=== PATIENT | female | born 2000 | race Two or more races ===

== ENCOUNTER 2025-01-01 08:23 | Emergency (ER) | payer OTHER, SELFPAY ==
[2025-01-01 08:29] VITALS: BP 144/94; PULSE 78; TEMP 36.7; O2SAT 99; BMI 21.6
--- NOTE | 2025-01-01 08:50 | ED_ITS ---
HPI HPI - General Adult General Chief complaint: Abdominal Pain Stated complaint: LOWER L SIDED ABDOMINAL & RECTAL PAIN, MISCARRIAGE Time Seen by Provider: 01/01/25 08:43 Source: patient Mode of arrival: walk-in Limitations: no limitations History of Present Illness HPI narrative: 24-year-old female presents to the emergency department for low abdominal pain. She states she started having a miscarriage on December 07 and was having some bleeding. At 1 point she was seen at an urgent care center in [place] and she had an ultrasound and she was told she still had some tissue. She was given Cytotec. She had some severe lower abdominal pain today and came in to get checked. No fever or injury. She is 4 para 1. Related Data Home Medications ?Medication ?Instructions ?Recorded ?Confirmed No Known Home Medications 01/01/2512/15 Allergies Allergy/AdvReac Type Severity Reaction Status Date / Time No Known Drug Allergies Allergy Verified 01/01/25 08:29 Opioid HPI Opioid Management Most Recent Opioid Data: Last Pain Scale 3 Today, 08:35 Review of Systems ROS Narrative A ten point review of systems is negative except as noted above. PFSH PFSH Social History Little interest or pleasure in doing things: not at all Feeling down, depressed, or hopeless: not at all Exam Narrative Exam Narrative: Nurses note and vital signs reviewed and patient is not hypoxic. General: The patient appears well and in no apparent distress. Patient is resting comfortably on cart. Skin: Warm, dry, no pallor noted. There is no rash noted. Head: Normocephalic, atraumatic Eye: Normal conjunctiva, no drainage Ears, Nose, Mouth, and Throat: oral mucosa is moist. Nares patent. Cardiovascular: Regular Rate and Rhythm Respiratory: Patient is in no distress, no accessory muscle use, lungs are clear to auscultation, no wheezing, rales or rhonchi Back: non-tender GI: Mild tenderness across the lower abdomen Musculoskeletal: The patient has no evidence of calf tenderness, no pitting edema, symmetrical pulses noted bilaterally Neurological: A&O, normal speech Psychiatric: Cooperative Constitutional Vital Signs, click to edit/add: Last Vital Signs Temp 98.1 F 01/01/25 08:29 Pulse 78 01/01/25 08:29 Resp 18 01/01/25 08:29 BP 144/94 H 01/01/25 08:29 Pulse Ox 99 01/01/25 09:27 O2 Del Method Room Air 01/01/25 09:27 Course Vital Signs Vital signs: Vital Signs Temperature 98.1 F 01/01/25 08:29 Pulse Rate 78 01/01/25 08:29 Respiratory Rate 18 01/01/25 08:29 Blood Pressure 144/94 H 01/01/25 08:29 Pulse Oximetry 99 01/01/25 08:29 Oxygen Delivery Method Room Air 01/01/25 08:29 Temperature 98.1 F 01/01/25 08:29 Pulse Rate 78 01/01/25 08:29 Respiratory Rate 18 01/01/25 08:29 Blood Pressure 144/94 H 01/01/25 08:29 Pulse Oximetry 99 01/01/25 09:27 Oxygen Delivery Method Room Air 01/01/25 09:27 Medical Decision Making MDM Narrative Medical decision making narrative: hCG is only 13. Ultrasound showed questionable retained products. I discussed the case with Dr. Hubbard. We agree that it is unlikely that she has retained products with an hCG of only 13. He will see her in the office on Saturday, 3 days from now. She was given a prescription for repeat hCG titer to be done b efore her appointment. Treatment diagnosis and follow-up were discussed with the patient Differential Diagnosis Differential Diagnosis: Miscarriage, incomplete miscarriage Lab Data Lab results reviewed: Yes I reviewed the patient's lab results Labs: Lab Results 01/01/25 Range/Units 09:00 WBC 4.5 (4.0-11.0) 10^3/uL RBC 3.78 L (4.20-5.40) 10^6/uL Hgb 9.4 L (12.0-16.0) g/dL Hct 28.5 L (36.0-48.0) % MCV 75.4 L (81.0-99.0) fL MCH 24.9 L (26.7-34.0) pg MCHC 33.0 (29.9-35.2) g/dL RDW 13.5 (11.0-15.0) % Plt Count 251 (150-450) 10^3/uL MPV 11.8 (9.5-13.5) fL Neut % (Auto) 66.0 (43.0-75.0) % Lymph % (Auto) 27.2 (20.5-60.0) % [place] % (Auto) 5.5 (1.7-12.0) % Eos % (Auto) 0.9 (0.9-7.0) % Baso % (Auto) 0.2 (0.2-2.0) % Neut # (Auto) 3.0 (1.4-6.5) 10^3/uL Lymph # (Auto) 1.2 (1.2-3.8) 10^3/uL [place] # (Auto) 0.3 (0.3-0.8) 10^3/uL Eos # (Auto) 0.0 (0.0-0.7) 10^3/uL Baso # (Auto) 0.0 (0.0-0.1) 10^3/uL Abs Immat Gran (auto) 0.01 (0.00-0.03) 10^3/uL Imm/Tot Granulo (auto) 0.2 (0.0-0.5) % Sodium 140 (136-145) mmol/L Potassium 3.8 (3.5-5.1) mmol/L Chloride 104 (98-107) mmol/L Carbon Dioxide 27.1 (21.0-32.0) mmol/L Anion Gap 12.7 BUN 12.0 (7.0-18.0) mg/dL Creatinine 0.76 (0.55-1.02) mg/dL Est GFR ( Amer) >60 (>=60 mL/min/1.73m^2) Est GFR (Non-Af Amer) >60 (>=60 mL/min/1.73m^2) BUN/Creatinine Ratio 15.8 Glucose 93 (74-106) mg/dL Calcium 8.9 (8.5-10.1) mg/dL HCG, Quant 13 mIU/mL Blood Type O Positive Imaging Data Pelvic ultrasound: Radiologist's impression: ITS Impressions Transvaginal US 01/01/25 09:11 IMPRESSION: COMPLEX APPEARING ENDOMETRIUM. RETAINED PRODUCTS OF CONCEPTION ARE NOT EXCLUDED. NO ADNEXAL CYSTS. Impression dictated by: Michelle Ashraf M.D. 01/01/2025 11:21 AM Dictation Location: [place] [id number] Electronically authenticated by: [id number] Y Date: 01/01/2025 11:21 Discharge Plan Discharge Chief Complaint: Abdominal Pain Clinical Impression: Miscarriage Patient Disposition: Home, Self-Care Time of Disposition Decision: 12:32 Condition: Good Mode of Transportation: Private Vehicle Prescriptions / Home Meds: No Action No Known Home Medications Print Language: Iranian Instructions: Miscarriage (ED) Additional Instructions: See Dr. Hubbard on Saturday. Have your blood drawn before your appointment. Referrals: Lionel Hubbard DO [Physician, [employer]S CLERK] - 01/04/25 [facility] [Primary Care Provider, Unknown] - 1 week
[2025-01-01 09:09] LABS: Hematocrit 28.5 % (36.0-48.0); Hemoglobin 9.4 g/dL (12.0-16.0); Immature Granulocytes Abs Auto 0.01 10^3/uL (0.00-0.03); Immature Granulocytes Pct Auto 0.2 % (0.0-0.5); Lymphocytes Absolute Auto 1.2 10^3/uL (1.2-3.8); Mean Corpuscular HGB Conc 33.0 g/dL (29.9-35.2); Mean Corpuscular Hemoglobin 24.9 pg (26.7-34.0); Mean Corpuscular Volume 75.4 fL (81.0-99.0); Platelet Count 251 10^3/uL (150-450); Red Blood Count 3.78 10^6/uL (4.20-5.40); White Blood Count 4.5 10^3/uL (4.0-11.0)
--- NOTE | 2025-01-01 09:11 | US_ITS ---
[facility] [address] [address] Patient Name: SANDRA VICENTE MRN: [id number] date: 2000 Sex: F Assigned Patient Location: ER Current Patient Location: ER Accession/Order Number: [id number] Exam Date: 01/01/2025 11:17 Report Date: 01/01/2025 11:21 At the request of: BRIGHT PERRY MD Procedure: US pelvis transvaginal ULTRASOUND PELVIS TRANSVAGINAL CLINICAL DATA: Pelvic pain and bleeding. History of retained products of conception. Miscarriage one month ago COMPARISON: None Real-time ultrasound evaluation pelvis was performed utilizing a transvaginal approach. Estimated uterine size is approximately 8.3 x 4.8 x 6.4 cm. No focal myometrial abnormalities are identified. The endometrial lining is estimated at 13 mm in width. There are hypoechoic and anechoic areas within the endometrial canal. Both ovaries are seen. The right measures 3.3 x 1.4 x 2.5 cm. The left ovary measures 3.3 x 2.3 x 10 2.8 cm. Small follicles are present. There is documentation of bilateral ovarian blood flow. The resistive index on the right is 0.6 and on the left 0.5. No free fluid is seen. US/US pelvis transvaginal IMPRESSION: COMPLEX APPEARING ENDOMETRIUM. RETAINED PRODUCTS OF CONCEPTION ARE NOT EXCLUDED. NO ADNEXAL CYSTS. Impression dictated by: Michelle Ashraf M.D. 01/01/2025 11:21 AM Dictation Location: [place] [address] Electronically authenticated by: [id number] Y Date: 01/01/2025 11:21
[2025-01-01 09:21] LABS: Anion Gap 12.7; Blood Urea Nitrogen 12.0 mg/dL (7.0-18.0); Calcium 8.9 mg/dL (8.5-10.1); Carbon Dioxide 27.1 mmol/L (21.0-32.0); Chloride 104 mmol/L (98-107); Estimated GFR (African America >60 (>=60 mL/min/1.73m^2); Estimated GFR (Non-African Ame >60 (>=60 mL/min/1.73m^2); Glucose 93 mg/dL (74-106); Potassium 3.8 mmol/L (3.5-5.1); Sodium 140 mmol/L (136-145)
[2025-01-01 09:27] VITALS: O2SAT 99
[2025-01-01 12:42] VITALS: BP 121/74; PULSE 67; O2SAT 100
== END 2025-01-01 12:44 | disposition home or self-care (01) ==
PROVIDERS: Emergency Provider Emergency Medicine
DX: O03.9 Complete or unspecified spontaneous abortion without complication (principal)
CPT/HCPCS: 36415; 76830; 80048; 84702; 85025; 86900; 86901; 99284